=== PATIENT | male | born 1955 | race Hispanic/Latino ===

== ENCOUNTER 2021-03-19 13:01 | Emergency (ER) | payer MEDICARE ==
[~2021-03-19] VITALS: Ht 167.6 cm; Wt 85.3 kg
== END 2021-03-19 14:54 | disposition home or self-care (01) ==
LOC: ER 13:58
DX: R06.02 Shortness of breath (principal); R05.9 Cough, unspecified; I10 Essential (primary) hypertension; E11.9 Type 2 diabetes mellitus without complications
CPT/HCPCS: 99283